=== PATIENT | male | born 1995 | race Caucasian/White ===

== ENCOUNTER 2016-09-12 10:28 | Inpatient (IN) | payer MEDICAID, OTHER ==
[~2016-09-12] VITALS: Ht 190.5 cm; Wt 115.5 kg
[~2016-09-12 10:28] MED LIST: CHOL3000 PO; DIVA500T35 PO; OLAN10TA3 PO
[2016-09-12] MEDS ORDERED: OLAN10TA3 PO (10:44)
[2016-09-12] MEDS ORDERED: QUET25TA PO (10:44)
[2016-09-12] MEDS ORDERED: PERTUSS(ACELL),DIPH,TET VAC/PF 0.5 ML VIAL IM ONE (10:45)
[2016-09-12 11:10] LABS: BASOPHILS % (AUTO) 0.6 % (0.0-2.0); EOSINOPHILS % (AUTO) 1.3 % (1.0-6.0); HEMATOCRIT 39.4 % (41-53); LYMPHOCYTES # (AUTO) 1.8 K/uL (1.0-4.8); LYMPHOCYTES % (AUTO) 27.4 % (22.0-44.0); MEAN CORPUSCULAR HEMOGLOBIN 29.3 pg (26.0-34.0); MEAN CORPUSCULAR HGB CONC 32.8 G/dL (31.0-37.0); MEAN CORPUSCULAR VOLUME 89 fL (80-100); MONOCYTES # (AUTO) 0.5 K/uL (0.1-1.0); MONOCYTES % (AUTO) 6.7 % (2.0-9.0); NEUTROPHILS # (AUTO) 4.3 K/uL (1.8-7.7); PLATELET COUNT (AUTO) 262 K/uL (150-450); RED BLOOD CELL COUNT(AUTO) 4.41 MIL/uL (4.50-5.90); RED CELL DISTRIBUTION WIDTH 12.6 % (11.5-14.5); WHITE BLOOD COUNT (AUTO) 6.8 K/uL (4.5-11.0)
[2016-09-12 11:20] LABS: ANION GAP 12 mmol/L (8-16); CALCIUM, TOTAL 8.6 mg/dL (8.8-10.5); CARBON DIOXIDE 26 mmol/L (22-29); CHLORIDE 103 mmol/L (98-107); CREATININE 0.84 mg/dL (0.60-1.30); GLOMERULAR FILTR. RATE CALC > 60 mL/min (>60); POTASSIUM 3.2 mmol/L (3.5-5.1); SODIUM SERUM 141 mmol/L (136-145); UREA NITROGEN, BLOOD 9 mg/dL (7-18)
[2016-09-12 11:26] LABS: ALANINE AMINOTRANSFERASE 22 U/L (12-78); ALBUMIN 3.5 g/dL (3.4-5.0); ASPARTATE AMINOTRANSFERASE 14 U/L (15-37); BILIRUBIN,TOTAL 0.5 mg/dL (0.1-1.0); TOTAL PROTEIN, SERUM 6.8 g/dL (6.4-8.2); VALPROIC ACID 19 mcg/mL (50-100)
[2016-09-12 11:57] LABS: ACETAMINOPHEN < 2 mcg/mL (10-30)
[2016-09-12 11:58] LABS: SALICYLATE 0.7 mg/dL (2.8-20.0)
[2016-09-12] MEDS ORDERED: SODIUM CHLORIDE 0.9% 1,000 ML IV ONE ×2 (13:00→14:15)
[2016-09-12] MEDS ORDERED: NALOXONE HCL 1 MG/ML 2 ML SYG IVP ONE (14:30)
[2016-09-12] MEDS ORDERED: ONDANSETRON HCL 4 MG/2 ML VIAL IVP PRN ×2 (15:45→20:45)
[2016-09-12] MEDS ORDERED: ACETAMINOPHEN 325 MG TABLET PO PRN ×2 (15:45→20:45)
[2016-09-12 17:22] VITALS: BP 110/48
[2016-09-12 20:05] VITALS: BP 104/56
[2016-09-12] MEDS ORDERED: POTASSIUM CHL 10 MEQ/WATER 50 ML IV PRN (20:45)
[2016-09-12] MEDS ORDERED: POTASSIUM CHLORIDE 20 MEQ ER TABLET PO PRN (20:45)
[2016-09-13 02:52] LABS: POTASSIUM 3.7 mmol/L (3.5-5.1)
[2016-09-13 05:07] VITALS: BP 119/60
[2016-09-13 09:26] VITALS: BP 115/56
[2016-09-13] MEDS: PANTOPRAZOLE SODIUM 40 MG DR TABLET PO SCH (09:36)
[2016-09-13] MEDS ORDERED: SODIUM CHLORIDE 0.9% 1,000 ML IV SCH (12:15)
[2016-09-13 12:25] VITALS: BP 130/88
[2016-09-13 16:12] VITALS: BP 124/61
[2016-09-13] MEDS ORDERED: SODIUM CHLORIDE 0.9% IV SCH (16:40)
[2016-09-13] MEDS ORDERED: LEVOCARNITINE IV SCH (16:40)
[2016-09-13 19:56] VITALS: BP 128/66
[2016-09-13] MEDS: OLANZapine 10 MG TABLET PO SCH (20:40)
[2016-09-13 23:12] VITALS: BP 115/82
[2016-09-14] MEDS ORDERED: LEVOCARNITINE IV SCH (03:00)
[2016-09-14] MEDS ORDERED: SODIUM CHLORIDE 0.9% IV SCH (03:00)
[2016-09-14 04:16] VITALS: BP 122/74
[2016-09-14 06:38] LABS: BASOPHILS # (AUTO) 0.02 K/uL (0.00-0.20); BASOPHILS % (AUTO) 0.3 % (0.0-2.0); EOSINOPHILS # (AUTO) 0.06 K/uL (0.00-0.70); HEMATOCRIT 35.3 % (41-53); HEMOGLOBIN 11.7 g/dL (13.5-17.5); LYMPHOCYTES # (AUTO) 2.2 K/uL (1.0-4.8); MEAN CORPUSCULAR HEMOGLOBIN 29.8 pg (26.0-34.0); MEAN CORPUSCULAR HGB CONC 33.2 G/dL (31.0-37.0); MEAN CORPUSCULAR VOLUME 90 fL (80-100); MONOCYTES # (AUTO) 0.7 K/uL (0.1-1.0); MONOCYTES % (AUTO) 8.8 % (2.0-9.0); NEUTROPHILS # (AUTO) 4.7 K/uL (1.8-7.7); NEUTROPHILS % (AUTO) 61.1 % (40.0-70.0); PLATELET COUNT (AUTO) 228 K/uL (150-450); RED BLOOD CELL COUNT(AUTO) 3.93 MIL/uL (4.50-5.90); RED CELL DISTRIBUTION WIDTH 13.1 % (11.5-14.5); WHITE BLOOD COUNT (AUTO) 7.7 K/uL (4.5-11.0)
[2016-09-14 06:52] LABS: ALANINE AMINOTRANSFERASE 18 U/L (12-78); ALBUMIN 3.1 g/dL (3.4-5.0); ANION GAP 11 mmol/L (8-16); ASPARTATE AMINOTRANSFERASE 10 U/L (15-37); BILIRUBIN,TOTAL 0.6 mg/dL (0.1-1.0); CALCIUM, TOTAL 9.1 mg/dL (8.8-10.5); CARBON DIOXIDE 23 mmol/L (22-29); CHLORIDE 110 mmol/L (98-107); CREATININE 0.96 mg/dL (0.60-1.30); GLOMERULAR FILTR. RATE CALC > 60 mL/min (>60); POTASSIUM 3.8 mmol/L (3.5-5.1); SODIUM SERUM 144 mmol/L (136-145); TOTAL PROTEIN, SERUM 6.6 g/dL (6.4-8.2); UREA NITROGEN, BLOOD 11 mg/dL (7-18); VALPROIC ACID 54 mcg/mL (50-100)
[2016-09-14 07:09] VITALS: BP 122/69
[2016-09-14] MEDS: PANTOPRAZOLE SODIUM 40 MG DR TABLET PO SCH (08:57)
[2016-09-14 11:56] VITALS: BP 126/74
[2016-09-14 15:50] VITALS: BP 122/70
[2016-09-14 19:30] VITALS: BP 130/72
[2016-09-14] MEDS: OLANZapine 10 MG TABLET PO SCH (20:24)
[2016-09-14 23:15] VITALS: BP 124/68
[2016-09-15 04:14] VITALS: BP 122/68
[2016-09-15 08:04] VITALS: BP 119/69
[2016-09-15] MEDS: PANTOPRAZOLE SODIUM 40 MG DR TABLET PO SCH (08:40)
[2016-09-15 11:50] VITALS: BP 127/88
[2016-09-15 15:30] VITALS: BP 129/78
[2016-09-15 19:40] VITALS: BP 134/79
[2016-09-15] MEDS: OLANZapine 10 MG TABLET PO SCH (20:42)
[2016-09-15] MEDS: DIVALPROEX SODIUM 500 MG DR TABLET PO SCH (20:42)
[2016-09-15 23:40] VITALS: BP 116/65
[2016-09-16 05:43] VITALS: BP 106/53
[2016-09-16 08:21] VITALS: BP 99/61
[2016-09-16] MEDS: PANTOPRAZOLE SODIUM 40 MG DR TABLET PO SCH (09:10)
[2016-09-16] MEDS: DIVALPROEX SODIUM 500 MG DR TABLET PO SCH ×2 (09:10→20:45)
[2016-09-16] MEDS ORDERED: VITAD1000 PO (11:25)
[2016-09-16 15:06] VITALS: BP 117/82
[2016-09-16 19:15] VITALS: BP 127/86
[2016-09-16] MEDS: OLANZapine 10 MG TABLET PO SCH (20:45)
[2016-09-16 23:00] VITALS: BP 134/83
[2016-09-17 05:00] VITALS: BP 117/78
[2016-09-17 07:10] VITALS: BP 105/59
[2016-09-17] MEDS: DIVALPROEX SODIUM 500 MG DR TABLET PO SCH ×2 (09:05→20:06)
[2016-09-17] MEDS: PANTOPRAZOLE SODIUM 40 MG DR TABLET PO SCH (09:05)
[2016-09-17 13:35] VITALS: BP 124/76
[2016-09-17 15:02] VITALS: BP 120/78
[2016-09-17] MEDS ORDERED: 0.9% SODIUM CHLORIDE 10 ML SYRINGE IVP PRN (16:00)
[2016-09-17 19:11] VITALS: BP 130/68
[2016-09-17] MEDS: OLANZapine 10 MG TABLET PO SCH (20:06)
[2016-09-17 23:11] VITALS: BP 122/72
[2016-09-18 05:05] VITALS: BP 118/78
[2016-09-18 08:24] VITALS: BP 128/76
[2016-09-18] MEDS: PANTOPRAZOLE SODIUM 40 MG DR TABLET PO SCH (08:50)
[2016-09-18] MEDS: DIVALPROEX SODIUM 500 MG DR TABLET PO SCH (08:50)
[2016-09-18 11:12] VITALS: BP 118/73
[2016-09-18 15:15] VITALS: BP 118/80
[2016-09-23] MEDS ORDERED: FERR-89 PO (09:12)
== END 2016-09-18 17:10 | DRG 812 ==
LOC: EMS 10:30 → 5N 15:37 → 6N 09-13 17:10
PROVIDERS: ADMIT Hospitalist; ATTEND Hospitalist
PROC: 3E0234Z Introduction of Serum, Toxoid and Vaccine into Muscle, Percutaneous Approach (ICD-10-PCS; principal; 2016-09-12)
DX: T42.6X2A Poisoning by other antiepileptic and sedative-hypnotic drugs, intentional self-harm, initial encounter (principal); G92 Toxic encephalopathy; F31.4 Bipolar disorder, current episode depressed, severe, without psychotic features; E66.01 Morbid (severe) obesity due to excess calories; F20.9 Schizophrenia, unspecified; S51.812A Laceration without foreign body of left forearm, initial encounter; T43.592A Poisoning by other antipsychotics and neuroleptics, intentional self-harm, initial encounter; S51.811A Laceration without foreign body of right forearm, initial encounter; T51.92XA Toxic effect of unspecified alcohol, intentional self-harm, initial encounter; F10.10 Alcohol abuse, uncomplicated; F14.10 Cocaine abuse, uncomplicated; Z79.899 Other long term (current) drug therapy; Z68.31 Body mass index [BMI] 31.0-31.9, adult; Z23 Encounter for immunization; Z91.5 Personal history of self-harm; X78.1XXA Intentional self-harm by knife, initial encounter; Y93.89 Activity, other specified; Y92.89 Other specified places as the place of occurrence of the external cause; Y99.8 Other external cause status; Y90.6 Blood alcohol level of 120-199 mg/100 ml
CPT/HCPCS: 84132; 90715; 93005; 96361; 96372; 96374; 99291; G0480; G0481; J1955; J2310; J7030

== ENCOUNTER 2016-09-18 17:42 | Inpatient (IN) | payer MEDICAID ==
[~2016-09-18] VITALS: Ht 185.4 cm; Wt 111.9 kg
[~2016-09-18 17:42] MED LIST changes: -CHOL3000 PO; +QUET25TA PO; +VITAD1000 PO
[2016-09-18] MEDS ORDERED: HALOPERIDOL 5 MG TABLET PO PRN (17:45)
[2016-09-18 18:47] VITALS: BP 138/82
[2016-09-18] MEDS: DIVALPROEX SODIUM 500 MG DR TABLET PO SCH (19:00)
[2016-09-18] MEDS: OLANZapine 10 MG TABLET PO SCH (20:26)
[2016-09-18] MEDS: ZOLPIDEM TARTRATE 10 MG TABLET PO PRN (21:01)
[2016-09-19 07:09] LABS: ALANINE AMINOTRANSFERASE 23 U/L (12-78); ALBUMIN 3.2 g/dL (3.4-5.0); ANION GAP 10 mmol/L (8-16); ASPARTATE AMINOTRANSFERASE 12 U/L (15-37); BILIRUBIN,TOTAL 0.3 mg/dL (0.1-1.0); CALCIUM, TOTAL 8.7 mg/dL (8.8-10.5); CARBON DIOXIDE 27 mmol/L (22-29); CHLORIDE 104 mmol/L (98-107); CREATININE 0.84 mg/dL (0.60-1.30); GLOMERULAR FILTR. RATE CALC > 60 mL/min (>60); SODIUM SERUM 141 mmol/L (136-145); TOTAL PROTEIN, SERUM 6.8 g/dL (6.4-8.2); UREA NITROGEN, BLOOD 12 mg/dL (7-18); VALPROIC ACID 49 mcg/mL (50-100)
[2016-09-19 07:42] LABS: BASOPHILS % (AUTO) 0.6 % (0.0-2.0); EOSINOPHILS % (AUTO) 3.2 % (1.0-6.0); HEMATOCRIT 38.2 % (41-53); HEMOGLOBIN 12.6 g/dL (13.5-17.5); LYMPHOCYTES # (AUTO) 2.4 K/uL (1.0-4.8); MEAN CORPUSCULAR HEMOGLOBIN 29.7 pg (26.0-34.0); MEAN CORPUSCULAR VOLUME 90 fL (80-100); MONOCYTES # (AUTO) 0.7 K/uL (0.1-1.0); MONOCYTES % (AUTO) 13.4 % (2.0-9.0); NEUTROPHILS # (AUTO) 2.1 K/uL (1.8-7.7); NEUTROPHILS % (AUTO) 38.8 % (40.0-70.0); PLATELET COUNT (AUTO) 238 K/uL (150-450); RED BLOOD CELL COUNT(AUTO) 4.25 MIL/uL (4.50-5.90); RED CELL DISTRIBUTION WIDTH 12.9 % (11.5-14.5); WHITE BLOOD COUNT (AUTO) 5.4 K/uL (4.5-11.0)
[2016-09-19] MEDS ORDERED: ONDANSETRON HCL 4 MG TABLET PO PRN (08:00)
[2016-09-19] MEDS ORDERED: MAGNESIUM HYDROXIDE SUSPENSION 30 ML UDCUP PO PRN (08:00)
[2016-09-19] MEDS ORDERED: MAG HYDROX/AL HYDROX/SIMETH ES 30 ML SUSPENSION UDCUP PO PRN (08:00)
[2016-09-19] MEDS ORDERED: LOPERAMIDE HCL 2 MG CAPSULE PO PRN (08:00)
[2016-09-19] MEDS ORDERED: IBUPROFEN 600 MG TABLET PO PRN (08:00)
[2016-09-19] MEDS ORDERED: ACETAMINOPHEN 325 MG TABLET PO PRN (08:00)
[2016-09-19] MEDS ORDERED: ALBUTEROL SULFATE HFA 90 MCG/PUFF 8 GM INHALER IH PRN (08:00)
[2016-09-19] MEDS ORDERED: PETROLATUM,WHITE 71 GM JELLY TP PRN (08:00)
[2016-09-19] MEDS ORDERED: BENZOCAINE/MENTHOL LOZENGE [8 LOZENGES/PACKET] MM PRN (08:00)
[2016-09-19] MEDS ORDERED: CloNIDine HCL 0.1 MG TABLET PO PRN (08:00)
[2016-09-19 08:30] VITALS: BP 128/76
[2016-09-19] MEDS: CHOLECALCIFEROL (VIT D3) 1,000 UNITS TABLET PO SCH (08:57)
[2016-09-19] MEDS: DIVALPROEX SODIUM 500 MG DR TABLET PO SCH ×2 (08:57→16:20)
[2016-09-19] MEDS: LORazepam 2 MG TABLET PO PRN ×3 (08:58→19:15)
[2016-09-19] MEDS: NICOTINE 21 MG/24 HOUR PATCH TD SCH (09:00)
[2016-09-19] MEDS: BACITRACIN 28.4 GM OINTMENT TP SCH ×2 (11:20→16:20)
[2016-09-19 16:30] VITALS: BP 141/81
[2016-09-19] MEDS: OLANZapine 10 MG TABLET PO SCH (20:12)
[2016-09-19] MEDS: ZOLPIDEM TARTRATE 10 MG TABLET PO PRN (20:48)
[2016-09-20] MEDS: DIVALPROEX SODIUM 500 MG DR TABLET PO SCH ×2 (09:29→18:01)
[2016-09-20] MEDS: LORazepam 2 MG TABLET PO PRN ×2 (09:29→15:42)
[2016-09-20] MEDS: CHOLECALCIFEROL (VIT D3) 1,000 UNITS TABLET PO SCH (09:29)
[2016-09-20] MEDS: NICOTINE 21 MG/24 HOUR PATCH TD SCH (09:32)
[2016-09-20 09:43] VITALS: BP 125/76
[2016-09-20] MEDS: BACITRACIN 28.4 GM OINTMENT TP SCH ×2 (10:19→18:01)
[2016-09-20 17:01] VITALS: BP 128/77
[2016-09-20] MEDS: OLANZapine 10 MG TABLET PO SCH (20:07)
[2016-09-20] MEDS: ZOLPIDEM TARTRATE 10 MG TABLET PO PRN (20:31)
[2016-09-21] MEDS: FERROUS SULFATE 325 MG EC TABLET PO SCH ×2 (06:58→16:26)
[2016-09-21 07:11] LABS: CHOL/HDL RATIO 3.8 (4.2-7.3); THYROID STIMULATING HORMONE 1.31 uIU/mL (0.36-3.74)
[2016-09-21 08:32] VITALS: BP 116/65
[2016-09-21] MEDS: DIVALPROEX SODIUM 500 MG DR TABLET PO SCH ×2 (09:05→16:26)
[2016-09-21] MEDS: CHOLECALCIFEROL (VIT D3) 1,000 UNITS TABLET PO SCH (09:05)
[2016-09-21] MEDS: LORazepam 2 MG TABLET PO PRN ×2 (09:08→16:26)
[2016-09-21] MEDS: BACITRACIN 28.4 GM OINTMENT TP SCH ×2 (09:13→16:28)
[2016-09-21] MEDS: NICOTINE 21 MG/24 HOUR PATCH TD SCH (09:13)
[2016-09-21] MEDS: ZOLPIDEM TARTRATE 10 MG TABLET PO PRN (20:34)
[2016-09-21] MEDS: OLANZapine 10 MG TABLET PO SCH (20:34)
[2016-09-21 22:42] VITALS: BP 128/76
[2016-09-22] MEDS: FERROUS SULFATE 325 MG EC TABLET PO SCH ×2 (06:32→16:51)
[2016-09-22 08:16] VITALS: BP 124/73
[2016-09-22] MEDS: DIVALPROEX SODIUM 500 MG DR TABLET PO SCH ×2 (09:24→16:51)
[2016-09-22] MEDS: CHOLECALCIFEROL (VIT D3) 1,000 UNITS TABLET PO SCH (09:24)
[2016-09-22] MEDS: BACITRACIN 28.4 GM OINTMENT TP SCH ×2 (09:28→16:52)
[2016-09-22] MEDS: NICOTINE 21 MG/24 HOUR PATCH TD SCH (09:28)
[2016-09-22] MEDS: LORazepam 2 MG TABLET PO PRN ×2 (09:30→15:47)
[2016-09-22] MEDS: OLANZapine 10 MG TABLET PO SCH (21:06)
[2016-09-22 22:23] VITALS: BP 122/78
[2016-09-23] MEDS: FERROUS SULFATE 325 MG EC TABLET PO SCH (06:44)
[2016-09-23] MEDS: CHOLECALCIFEROL (VIT D3) 1,000 UNITS TABLET PO SCH (07:56)
[2016-09-23] MEDS: NICOTINE 21 MG/24 HOUR PATCH TD SCH (07:56)
[2016-09-23] MEDS: DIVALPROEX SODIUM 500 MG DR TABLET PO SCH (07:56)
[2016-09-23] MEDS: LORazepam 2 MG TABLET PO PRN (07:57)
[2016-09-23] MEDS ORDERED: BACI3.5O22 TP (09:12)
[2016-09-23] MEDS ORDERED: FERS325 PO (09:12)
[2016-09-23 09:21] VITALS: BP 118/75
[2016-09-23] MEDS: BACITRACIN 28.4 GM OINTMENT TP SCH (09:33)
== END 2016-09-23 12:30 | disposition home or self-care (01) | DRG 753 ==
LOC: 3EI 17:48
DX: F31.4 Bipolar disorder, current episode depressed, severe, without psychotic features (principal); G92 Toxic encephalopathy; E55.9 Vitamin D deficiency, unspecified; E58 Dietary calcium deficiency; D64.9 Anemia, unspecified; F14.10 Cocaine abuse, uncomplicated; S41.111A Laceration without foreign body of right upper arm, initial encounter; F10.10 Alcohol abuse, uncomplicated; S51.819A Laceration without foreign body of unspecified forearm, initial encounter; S41.112A Laceration without foreign body of left upper arm, initial encounter; W45.8XXA Other foreign body or object entering through skin, initial encounter; T42.6X2A Poisoning by other antiepileptic and sedative-hypnotic drugs, intentional self-harm, initial encounter; F17.200 Nicotine dependence, unspecified, uncomplicated; G47.00 Insomnia, unspecified; Z91.5 Personal history of self-harm; Y92.89 Other specified places as the place of occurrence of the external cause; Y93.89 Activity, other specified; Y99.8 Other external cause status; Z79.899 Other long term (current) drug therapy; Z71.6 Tobacco abuse counseling; Z71.41 Alcohol abuse counseling and surveillance of alcoholic
CPT/HCPCS: 82306; 84443

== ENCOUNTER 2017-02-13 18:59 | Emergency (ER) | payer MEDICAID, OTHER ==
[~2017-02-13] VITALS: Ht 185.4 cm; Wt 111.4 kg
[~2017-02-13 18:59] MED LIST changes: +BACI3.5O22 TP; +FERR-89 PO; -QUET25TA PO
[2017-02-13 22:05] VITALS: BP 131/83
== END 2017-02-13 22:10 | disposition home or self-care (01) ==
LOC: EMS 19:01
DX: R07.2 Precordial pain (principal); F20.9 Schizophrenia, unspecified; F32.9 Major depressive disorder, single episode, unspecified; F10.10 Alcohol abuse, uncomplicated
CPT/HCPCS: 93005; 99284